=== PATIENT | female | born 1975 | race Caucasian/White ===

== ENCOUNTER 2020-01-18 01:58 | Outpatient (RCR) | payer OTHER, SELFPAY ==
[2020-01-18] MEDS: Normal Saline Flush 10 ML SYR IVP (09:41)
== END 2020-02-08 23:59 | disposition home or self-care (01) ==
LOC: INF 01:58
PROVIDERS: PCP Family Medicine; Visit Provider Internal Medicine Hematology & Oncology
DX: Z53.9 Procedure and treatment not carried out, unspecified reason (principal)